=== PATIENT | female | born 1995 | race Caucasian/White ===

== ENCOUNTER 2024-10-15 20:40 | Emergency (ER) | payer SELFPAY ==
[~2024-10-15] VITALS: Ht 152.4 cm; Wt 68.0 kg
[2024-10-15 20:50] VITALS: O2SAT 100
[2024-10-15 21:23] LABS: CLARITY URINE CLEAR (CLEAR); COLOR URINE YELLOW (YELLOW); GLUCOSE URINE NEGATIVE (NEGATIVE); KETONES URINE NEGATIVE (NEGATIVE); LEUKOCYTE ESTERASE URINE 2+ (NEGATIVE); NITRITE URINE NEGATIVE (NEGATIVE); OCCULT BLOOD URINE 2+ (NEGATIVE); PH URINE 7.0 (4.5-8.0); PROTEIN URINE TRACE (NEGATIVE); SPECIFIC GRAVITY URINE 1.009 (1.005-1.030); UROBILINOGEN URINE 0.2 E.U./dL (0.2-1.0)
[2024-10-15 21:32] LABS: UCG KIT LOT# 946166; UCG SCREEN NEGATIVE
[2024-10-15 21:44] LABS: BASOPHILS % 0.2 % (0.0-2.0); EOSINOPHILS % 0.7 % (0.0-5.0); HEMATOCRIT. 40.0 % (36.0-48.0); HEMOGLOBIN. 12.9 g/dL (12.0-16.0); LYMPHOCYTES % 18.8 % (20.0-50.0); MEAN PLATELET VOLUME 10.2 fl (7.4-10.4); MONOCYTES % 5.2 % (2.0-8.0); NEUTROPHILS % 75.1 % (40.0-76.0); PLATELET 157 x1000/uL (130-400); RED BLOOD CELL COUNT 4.41 mill/uL (4.2-5.4); RED CELL DISTRIBUTION WIDTH 14.2 % (11.6-14.6)
[2024-10-15 21:45] LABS: BACTERIA URINE TRACE; SQUAMOUS EPITHELIAL CELL URINE 1+ /lpf (RARE/1+)
[2024-10-15 21:53] LABS: CREATININE 0.5 mg/dL (0.6-1.0)
[2024-10-15 21:54] LABS: UREA NITROGEN BLOOD 8 mg/dL (9-23)
[2024-10-16] MEDS: KETOROLAC 30MG/ML VIAL IM ONE (00:15)
[2024-10-16] MEDS ORDERED: NITR-87 MT (00:19)
[2024-10-16] MEDS ORDERED: IBUP-2029 MT (00:19)
[2024-10-16 01:22] VITALS: BP 111/66; PULSE 90; RESP 12; TEMP 36.7; O2SAT 100
== END 2024-10-16 01:24 | disposition home or self-care (01) ==
LOC: ER 20:40
DX: N39.0 Urinary tract infection, site not specified (principal); N83.201 Unspecified ovarian cyst, right side; J45.909 Unspecified asthma, uncomplicated
CPT/HCPCS: 80048; 81003; 81025; 85025; 36415; 76830; 76856; 99285; 96372; J1885; Z7610

== ENCOUNTER 2024-11-02 07:37 | Emergency (ER) | payer MEDICAID ==
[~2024-11-02] VITALS: Ht 157.5 cm; Wt 58.9 kg
[~2024-11-02 07:37] MED LIST: IBUP-2029 MT; NITR-87 MT
[2024-11-02 08:44] VITALS: PULSE 94; RESP 18; O2SAT 97
[2024-11-02] MEDS: IPRATROPIUM BROMIDE (0.02%) 0.5MG/2.5ML NEB HHN ONE ×2 (08:44→10:05)
[2024-11-02] MEDS: ALBUTEROL (0.083%) 2.5MG/3ML NEB HHN ONE ×2 (08:44→10:05)
[2024-11-02] MEDS: PREDNISONE 20MG TABLET PO ONE (08:45)
[2024-11-02 08:56] LABS: BASOPHILS % 0.4 % (0.0-2.0); EOSINOPHILS % 2.3 % (0.0-5.0); HEMATOCRIT. 38.4 % (36.0-48.0); HEMOGLOBIN. 12.7 g/dL (12.0-16.0); LYMPHOCYTES % 11.2 % (20.0-50.0); MEAN PLATELET VOLUME 10.6 fl (7.4-10.4); MONOCYTES % 6.6 % (2.0-8.0); NEUTROPHILS % 79.5 % (40.0-76.0); PLATELET 201 x1000/uL (130-400); RED BLOOD CELL COUNT 4.37 mill/uL (4.2-5.4); RED CELL DISTRIBUTION WIDTH 13.5 % (11.6-14.6)
[2024-11-02 09:07] LABS: CREATININE 0.7 mg/dL (0.6-1.0); UREA NITROGEN BLOOD 6 mg/dL (9-23)
[2024-11-02 10:05] VITALS: PULSE 111; RESP 18; O2SAT 95
[2024-11-02 10:23] VITALS: TEMP 37.3
[2024-11-02] MEDS: POTASSIUM CHLORIDE 20MEQ TABLET SR PO SCH (11:31)
[2024-11-02] MEDS ORDERED: P20 MT (11:40)
[2024-11-02] MEDS ORDERED: ALBU90AE INH (11:40)
[2024-11-02 11:54] VITALS: BP 101/63; PULSE 60; RESP 14; O2SAT 100
== END 2024-11-02 11:59 | disposition home or self-care (01) ==
LOC: ER 07:37
DX: J45.901 Unspecified asthma with (acute) exacerbation (principal); Z79.899 Other long term (current) drug therapy
CPT/HCPCS: 80048; 85025; 36415; 71045; 94640; 93005; 99285; J7512; Z7610 ×3; 94070; 94664; 98960